=== PATIENT | female | born 1975 | race Two or more races ===

== ENCOUNTER 2020-12-24 12:15 | Inpatient (IN) | payer OTHER ==
[~2020-12-24] VITALS: Ht 157.5 cm; Wt 58.1 kg
== END 2020-12-30 10:53 | disposition home or self-care (01) | DRG 742 ==
LOC: O/R 12-26 07:26 → SURH 12-26 11:45 → OB/GYN 12-26 17:24
PROVIDERS: ADMIT Specialist; ATTEND Specialist
PROC: 0UB70ZZ Excision of Bilateral Fallopian Tubes, Open Approach (ICD-10-PCS; 2020-12-26)
PROC: 0UT90ZZ Resection of Uterus, Open Approach (ICD-10-PCS; principal; 2020-12-26 11:45)
DX: N72 Inflammatory disease of cervix uteri (principal); D62 Acute posthemorrhagic anemia; D25.1 Intramural leiomyoma of uterus; D25.2 Subserosal leiomyoma of uterus; I10 Essential (primary) hypertension; E03.9 Hypothyroidism, unspecified